=== PATIENT | female | born 1965 | race Two or more races ===

== ENCOUNTER 2017-10-13 21:00 | Emergency (ER) | payer OTHER ==
[~2017-10-13] VITALS: Ht 165.1 cm; Wt 72.6 kg
[2017-10-13 21:16] VITALS: BP 121/73
[2017-10-13] MEDS ORDERED: KETOROLAC TROMETH 60MG/2ML VIAL IM ONE (22:45)
[2017-10-13] MEDS ORDERED: HYDROcodone-ACET 10/325MG TAB PO ONE (22:45)
== END 2017-10-14 00:20 | disposition home or self-care (01) ==
LOC: ER 21:00
DX: M54.16 Radiculopathy, lumbar region (principal)
CPT/HCPCS: 72131; 96372; 99284; J1885